=== PATIENT | female | born 1990 | race Caucasian/White ===

== ENCOUNTER 2017-01-20 00:27 | Emergency (ER) | payer OTHER ==
[~2017-01-20] VITALS: Ht 160 cm; Wt 55.0 kg
[~2017-01-20 00:27] MED LIST: ALBU1AER INH; TYLE500T PO
[2017-01-20 00:35] VITALS: BP_SYST 1; BP_SYST 101; BP_DIAS 58; PULSE 120; RESP 25; TEMP 98.8; O2SAT 99
--- NOTE | 2017-01-20 01:15 | PD ---
HPI Chief Complaint: Alcohol/Drug Intoxication Time Seen by Provider: 01:00 Travel History International Travel<30 days: No Contact w/Intl Traveler<30days: No Traveled to known affect area: No History of Present Illness HPI This is a 26-year-old female who presents under [place] act initiated by the Police Department. According to the paperwork the police were looking for her boyfriend's mother had filed a missing persons report. She was observed to be distraught and disoriented and under the influence of methamphetamine. She was therefore placed on her [place] act and brought here. The patient reports that she was with her boyfriend when the police arrived, she was unaware that a missing persons report abdomen filed. She reports that some pepper spray had been administered and she became agitated and she admits to this. She now feels more calm and collected. She admits to using some IV methamphetamine as well as Floxin today which he doesn't a regular basis. At this point in time she is only requesting to sleep as well as to eat some kain crackers and drink some Gatorade. She has no other complaints. No suicidal or homicidal ideation, hallucination. PFSH Past Medical History Cancer: Yes (BONE MARROW, LEUKEMIA ALL T-CELL) Chemotherapy: Yes (1994) Diminished Hearing: No Immunizations Current: No ?: Not Menopausal: No Past Surgical History Surgical History: No Previous Surgery Other Surgery: Yes (PORT INSERTON AND REMOVAL) Social History Alcohol Use: Yes (OCCASIONAL) Tobacco Use: No Substance Use: No Allergies-Medications (Allergen,Severity, Reaction): Coded Allergies: Bactrim (Verified Adverse Reaction, Intermediate, Nausea/Vomiting, 01/20/17) Keflex (Unverified Adverse Reaction, Intermediate, Nausea/Vomiting, 01/20/17 ) Reported Meds & Prescriptions Reported Meds & Active Scripts Active Review of Systems Except as stated in HPI: all other systems reviewed are Neg Physical Exam Narrative GENERAL: Somewhat disheveled appearing female who is in no acute distress. She was tachycardic upon triage likely secondary to agitation and methamphetamine use. Currently she is more cooperative and calm. SKIN: Warm and dry. HEAD: Atraumatic. Normocephalic. EYES: Pupils equal and round. No scleral icterus. No injection or drainage. ENT: No nasal bleeding or discharge. Mucous membranes pink and moist. NECK: Trachea midline. No JVD. CARDIOVASCULAR: Regular rate and rhythm. No murmur appreciated. RESPIRATORY: No accessory muscle use. Clear to auscultation. Breath sounds equal bilaterally. GASTROINTESTINAL: Abdomen soft, non-tender, nondistended. Hepatic and splenic margins not palpable. MUSCULOSKELETAL: No obvious deformities. No clubbing. No cyanosis. No edema. NEUROLOGICAL: Awake and alert. No obvious cranial nerve deficits. Motor grossly within normal limits. Normal speech. PSYCHIATRIC: Appropriate mood and affect; insight and judgment normal. Data Data Last Documented VS Vital Signs Date Time Temp Pulse Resp B/P Pulse Ox O2 Delivery O2 Flow Rate FiO2 01/20/17 00:48 120 18 100 Room Air 01/20/17 00:35 98.8 101/58 MDM Medical Decision Making Medical Screen Exam Complete: Yes Emergency Medical Condition: Yes Medical Record Reviewed: Yes Differential Diagnosis Substance-induced disorder, acute psychosis, methamphetamine abuse, adjustment reaction Narrative Course 26-year-old female presents under [facility] act because she became agitated when police arrived in a search for her boyfriend. She admits to using methamphetamine and Floxin. She is currently more calm and cooperative and plans to go home in the morning to sleep. The patient will be discharged in the morning. Diagnosis Primary Impression: Substance-induced disorder Referrals: [facility] Pt SpecificInfo: No Change to Meds Disposition: 01 DISCHARGE HOME Condition: Stable Duane Raimrez Jan 20, 2017 01:15
[2017-01-20 06:52] VITALS: BP 131/90; PULSE 86; RESP 18; TEMP 97.7; O2SAT 96
== END 2017-01-20 09:02 | disposition home or self-care (01) ==
LOC: NEPB 00:27
DX: F15.90 Other stimulant use, unspecified, uncomplicated (principal)
CPT/HCPCS: 99284